=== PATIENT | female | born 1960 | race Caucasian/White ===

== ENCOUNTER → 2018-07-05 09:13 | Outpatient (CLI) | payer OTHER, SELFPAY ==
--- NOTE | 2018-07-05 09:15 | DI.RAD.S_ITS ---
PROCEDURE: XR HAND RT MIN 3V INDICATIONS: Right wrist/hand pain after a fall 2 days ago. TECHNIQUE: 3 views of the hand(s) acquired. COMPARISON: None. FINDINGS: Bones: No fractures or dislocations. Carpal bones are normally aligned. No suspicious bony lesions. Mild osteoarthritic changes are noted in multiple interphalangeal joints. Soft tissues: No suspicious soft tissue calcifications. IMPRESSION: No fracture or dislocation. Dictated by: Leonor Hickey M.D. on 07/05/2018 at 9:29 Approved by: Leonor Hickey M.D. on 07/05/2018 at 9:34
== END ==
PROVIDERS: Family Provider Family Medicine; PCP Nurse Practitioner Family; Visit Provider Physician Assistant
DX: M25.531 Pain in right wrist (principal); M79.641 Pain in right hand
CPT/HCPCS: 73130

== ENCOUNTER → 2018-07-05 16:52 | Outpatient (CLI) | payer OTHER, SELFPAY ==
--- NOTE | 2018-07-05 | DI.RAD.S_ITS ---
PROCEDURE: XR WRIST RT MIN 3V INDICATIONS: PAIN IN RIGHT WRIST TECHNIQUE: 4 views of the wrist were acquired. COMPARISON: None. FINDINGS: Bones: No acute fractures or dislocations. A prominent corticated ossification noted over the dorsal aspect of the right wrist possibly representing sequela of remote triquetral fracture/injury. Mild degenerative changes of the radiocarpal joint. No suspicious bony lesions. Scaphoid view: The scapholunate interval is maintained. Soft tissues: No suspicious soft tissue calcifications. IMPRESSION: 1. Right wrist without acute radiographic abnormalities. 2. Prominent corticated ossification over the dorsal aspect of the right wrist which may represent sequela of remote triquetral fracture/injury. 3. Mild degenerative changes of the radiocarpal joint. Dictated by: Osvaldo Samuel M.D. on 07/06/2018 at 12:41 Approved by: Osvaldo Samuel M.D. on 07/06/2018 at 12:45
== END ==
PROVIDERS: PCP Internal Medicine; Visit Provider Physician Assistant
DX: M25.531 Pain in right wrist (principal); M19.031 Primary osteoarthritis, right wrist
CPT/HCPCS: 73110; 73130

== ENCOUNTER → 2018-08-07 09:21 | Outpatient (CLI) | payer OTHER, SELFPAY ==
--- NOTE | 2018-08-07 | DI.MG.S_ITS ---
BILATERAL DIGITAL SCREENING MAMMOGRAM 3D/2D WITH CAD: 08/07/2018 CLINICAL: Routine screening. Family history of breast cancer. Comparison is made to exams dated: 06/23/2016 mammogram, 02/10/2014 mammogram, and 06/20/2011 mammogram - [facility]. The tissue of both breasts is heterogeneously dense. This may lower the sensitivity of mammography. Current study was also evaluated with a Computer Aided Detection (CAD) system. There are benign calcifications in both breasts. No significant masses, calcifications, or other findings are seen in either breast. There has been no significant interval change. IMPRESSION: There is no mammographic evidence of malignancy. A 1 year screening mammogram is recommended. This exam was interpreted at Station ID: [id number]. NOTE: For mammograms, a report in lay terms will be sent to the patient. Approximately 15% of breast malignancies will not be visualized mammographically. In the management of a palpable breast mass, a negative mammogram must not discourage biopsy of a clinically suspicious lesion. Electronically Signed By: Osvaldo york/tone:08/09/2018 12:35:22 letter sent: Normal Exam ACR BI-RADS Category 2: Benign Finding(s) 3342F
== END ==
PROVIDERS: PCP Internal Medicine; Visit Provider Internal Medicine
DX: Z12.31 Encounter for screening mammogram for malignant neoplasm of breast (principal); Z80.3 Family history of malignant neoplasm of breast
CPT/HCPCS: 77063; 77067

== ENCOUNTER → 2019-06-26 20:23 | Outpatient (CLI) | payer OTHER, SELFPAY ==
--- NOTE | 2019-06-26 20:25 | DI.RAD.S_ITS ---
PROCEDURE: XR FOOT RT 2V INDICATIONS: RIGHT GREAT TOE PAIN TECHNIQUE: 2 views of the foot were acquired. COMPARISON: None. FINDINGS: Bones: No fractures or dislocations. There is mild degeneration at the 1st metatarsophalangeal joint with joint space narrowing and osteophytosis laterally. Mild degeneration is also noted at the interphalangeal joints in the 2nd to 5th toes. No suspicious bony lesions. Soft tissues: There is mild periarticular soft tissue swelling medial to 1st metatarsophalangeal joint. No tibiotalar joint effusion. Achilles tendon appears intact. IMPRESSION: 1. Mild osteoarthritic changes including at the 1st metatarsophalangeal joint. Dictated by: Rodolfo Diez M.D. on 06/26/2019 at 20:43 Approved by: Rodolfo Diez M.D. on 06/26/2019 at 20:45
== END ==
PROVIDERS: PCP Internal Medicine; Referring Provider Internal Medicine; Visit Provider Internal Medicine
DX: M79.674 Pain in right toe(s) (principal); M79.89 Other specified soft tissue disorders
CPT/HCPCS: 73620

== ENCOUNTER → 2020-02-17 14:27 | Outpatient (CLI) | payer OTHER, SELFPAY ==
--- NOTE | 2020-02-17 14:29 | DI.RAD.S_ITS ---
PROCEDURE: XR WRIST LT MIN 3V INDICATIONS: L wrist pain and bruising after FOOSH TECHNIQUE: 4 views of the wrist were acquired. COMPARISON: [facility], CR, XR HAND RT MIN 3V, 07/05/2018, 9:16. [facility], CR, XR WRIST RT MIN 3V, 07/05/2018, 16:58. FINDINGS: Bones: No definite common displaced fractures or dislocations. There is focal irregularity seen involving the radial styloid. No suspicious bony lesions. Degenerative changes are seen throughout, which are most prominent involving the 1st carpometacarpal joint. Milder degenerative changes are seen elsewhere. Scaphoid view: No navicular fractures are seen. Soft tissues: No suspicious soft tissue calcifications. IMPRESSION: No definite, displaced fractures are seen. Focal bony irregularity seen involving the radial styloid, which may represent a fracture, yet is felt more likely to be related to remote irregularity. Please correlate with focal tenderness. If there is snuffbox tenderness (or other clinical suspicion for a fracture not seen on these images) then a repeat examination would be recommended in 10 to 14 days, following splinting. Dictated by: Sarkis Fernandez M.D. on 02/17/2020 at 14:05 Approved by: Sarkis Fernandez M.D. on 02/17/2020 at 14:08
== END ==
PROVIDERS: PCP Internal Medicine; Referring Provider Nurse Practitioner; Visit Provider Nurse Practitioner
DX: S60.212A Contusion of left wrist, initial encounter (principal); M25.532 Pain in left wrist; W19.XXXA Unspecified fall, initial encounter
CPT/HCPCS: 73110

== ENCOUNTER → 2020-03-02 14:59 | Outpatient (CLI) | payer OTHER, SELFPAY ==
[2020-03-04 13:06] LABS: COVID19 Sendout Not Detected
== END ==
PROVIDERS: PCP Internal Medicine; Visit Provider Physician Assistant
DX: Z11.59 Encounter for screening for other viral diseases (principal)
CPT/HCPCS: 87635

== ENCOUNTER 2020-03-05 11:57 | Day surgery (SDC) | payer OTHER, SELFPAY ==
--- NOTE | 2020-03-05 | PATH_ITS ---
[facility] Accession Number: [id number] . 01 Material submitted: . sigmoid colon - SIGMOID POLYP 2CM X2 . 01 Clinical history: . A: SIGMOID POLYP 2CM X2 . 02 Diagnosis: Sigmoid Colon Polyps, 2 cm, Biopsies: Small serrated lesion, cannot exclude early sessile serrated adenoma. Please see comment. MRV 03/07/2020 1019 Local . 02 Comment: Only one tissue fragment is received for histologic evaluation. . 02 Electronically signed: . Bob Givens MD, PhD, Pathologist NPI- [id number] . 01 Gross description: . SIGMOID POLYP 2CM X2: Received in formalin is 1 fragment(s) of deshpande, soft tissue measuring 0.5 x 0.3 x 0.1 cm submitted entirely in 1 cassette(s) /QBJ 03/06/2020 0726 Local . 02 Pathologist provided ICD-10: D12.5 . 02 CPT . 041579 Performed at: 01 [facility] [address], [place], [place] [id number] MD Rodolfo Olivarez MD Phone: [phone] Performed at: 02 [facility] [address] [place], [place] [id number] MD Rubina Macias MD Phone: [phone]
--- NOTE | 2020-03-05 12:07 | P.HP_ITS ---
History of Present Illness History of Present Illness Date Patient Seen: 03/05/20 Chief complaint: [facility] Narrative: 59 Years Old Female seen today for consideration of a screening colonoscopy. This is her second lifetime colonoscopy, previous colonoscopy in 2015 revealed polyps, records not available at time dictation. There have been no lower GI symptoms suggesting disease such as change in bowel habits, bleeding, abdominal pain or anemia. She does have a family history of colon cancer in her mother. Overall health issues have been stable, including no major cardiac events for at least 6 weeks. Current Medications: 1) Docusate Sodium 100 Mg Oral Capsule (Docusate Sodium) .... Take two capsules once daily. 2) Cvs D3 5000 Unit Oral Capsule (Cholecalciferol) .... Take one capsule once daily. 3) Flax Seed Oil 1300 Mg Oral Capsule (Flaxseed (Linseed)) .... Take one capsule once daily 4) Multi-Vitamin/minerals Oral Tablet (Multiple Vitamins-Minerals) .... take one daily 5) Acidophilus Probiotic Complex Oral Tablet (Probiotic Product) .... Take one tablet once daily. 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 Matt Mora Past Surgical History: Tonsillectomy Endolymphatic Sac Decompression (1990) : 1998, 2001 Colonoscopy, 2014 Family History: Reviewed history from 08/09/2018 and no changes required: Father: Casey (1920) Glaucoma, Meniere's Desease, Prostate Cancer Mother: Magdalena (1924) age 63 - Lung CA Siblings: 7 - 1 of SIDS age 6mon. 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, Kadie (2001) - asthma 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[employer] 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: 4 Education: BA, DDS, MSD Alcohol drinks/day: 1/day >5/day in last 3 mos: no Caffeine use/day: 1-2 Type of Exercise: daily movement - constant Exercise Times per Week: 7 Guns in home: no Dental Care w/in 6 mos.: no Sun Exposure: rarely Fall Risk: no falls in past year Seat Belt Use: yes Smoking Status: never smoker Tobacco Type: none Drug Use: never HIV High Risk Behavior: no Patient History Surgical History Status post delivery Status post delivery Status post dilation and curettage Status post tonsillectomy and adenoidectomy Family & Social History Family History Brother Age: 54 Diabetes mellitus Father Age: 99 Glaucoma Cancer Sister Age: 68 Diabetes mellitus Tobacco & Substance use: Smoking Status Never smoker Meds Home Medications and Allergies Home Medications Medication Instructions Recorded Confirmed Type No Known Home Medications 02/17/20 02/17/20 History Allergies Allergy/AdvReac Type Severity Reaction Status Date / Time No Known Allergies Allergy Verified 03/05/20 12:33 Review of Systems Review of Systems ROS: Yes All systems reviewed with the patient and are negative except as otherwise documented Exam Narrative Exam Narrative: GENERAL: Alert and oriented, appearing stated age and in no acute distress. HEENT: Head normocephalic/atraumatic. Pupils equal, round, and reactive to light and accomodation. Extraocular muscles intact. Tympanic membranes clear. Nasal mucosa moist, septum midline. Oral mucosa moist, no lesions. Neck soft and supple, no lymphadenopathy. LUNGS: Clear to ausculation bilaterally, no wheezes, rhonchi or rales. CV: Normal S1 and S2 with regular rate and rhythm, no audible murmurs, rubs or gallops. ABDOMEN: Soft, non-tender, non-distended, no organomegaly. Positive bowel sounds. EXTREMITIES: No clubbing, cyanosis, or edema. NEURO: Cranial nerves II through XII grossly intact, no focal deficits. PSYCH: Alert and oriented x 3. SKIN: No concerning lesions. Assessment & Plan Assessment & Plan narrative: 1. History of colon polyps 2. Family history of colon cancer 3. Screening for colon cancer Plan for colonoscopy. The nature and character of the procedure as well as anticipated results were discussed. The possibility of not completing the procedure was also discussed. Possible complications including aspiration pneumonia, bleeding, perforation and reaction to medications either for sedation or preparation and missed lesions were discussed. Questions were answered and proceeding to the colonoscopy was elected. Informed consent signed. I sincerely appreciate the referral allowing me to participate in this patient's care. Please contact me with any questions or concerns.
--- NOTE | 2020-03-05 12:11 | PM.OP.ENDO ---
Operative Date/Time/Diagnoses Date of procedure: 03/05/20 Procedure & Clinicians Study performed: Flexible sigmoidoscopy Same procedure as scheduled: No (Incomplete colonoscopy) Procedure Notes SCOAP/Timeout: 1:05 p.m. Procedure in detail: ENDOSCOPIST: Anne Evans MD Sedation RN: Ashley Leigh RN Sedation start time: 13:06 Sedation end time: 13:48 PROCEDURE: Flexible sigmoidoscopy INDICATIONS: 1. History of colon polyps 2. Family history of colon cancer 3. Screening for colon cancer. MEDICATION: Levsin 0.125 mg sublingual, incremental doses of Versed and fentanyl until appropriate level sedation achieved. ASA CLASS: 2 COMPLICATIONS: None. EXTENT OF PROCEDURE: Cecum. QUALITY OF PREP: Good with portions of liquid stool. PROCEDURE: Prior to insertion of the colonoscope, a digital rectal examination was accomplished with circumferential palpation of the distal rectal mucosa without significant findings being noted. The high-definition pediatric colonoscope was passed into the rectum in the usual fashion and advanced over to the ascending colon with difficulty secondary to tortuosity. Multiple position changes were attempted from left lateral decubitus to supine to right lateral decubitus and back again several times with no improvement in ability to intubate any further than the mid ascending colon. Gentle holds were also used without achieving any forward movement. Cecum was visualized but not intubated. ASCENDING COLON: As the colonoscope was withdrawn, care was taken to expose and inspect the haustral folds no abnormalities were seen from the mid ascending colon distally. HEPATIC FLEXURE: Normal, no polyps, diverticula or other abnormalities. TRANSVERSE COLON: Normal, no polyps, diverticula or other abnormalities. DESCENDING COLON: Normal, no polyps, diverticula or other abnormalities. SIGMOID COLON: 2 small polyps were noted and removed with cold biopsy forceps, excellent hemostasis. Otherwise, 1 diverticula and no other abnormalities were seen. RECTUM: Normal. J maneuver was produced. There was no significant perianal disease. The J maneuver was broken. The remainder of the rectum was inspected and there was no external hemorrhoid disease. The scope was withdrawn. IMPRESSION: 1. Incomplete colonoscopy, intubated to mid ascending colon 2. Sigmoid polyp x2, 2 mm, removed with cold biopsy forceps 3. Sigmoid diverticula x1 PLAN: 1. Follow-up in clinic status post pathology results. The possibility of a missed lesion including a malignancy has been discussed with the patient previously. Potential alarm symptoms have been discussed and should be reported immediately.
[2020-03-05 12:18] VITALS: BP 100/52; PULSE 69; RESP 12; TEMP 36.8; O2SAT 100; BMI 23.6
[2020-03-05] MEDS: LACTATED RINGERS 1,000 ML 200 ML IV (12:34)
[2020-03-05] MEDS: HYOSCYAMINE 0.125 MG TABLET PO (12:36)
[2020-03-05] MEDS: fentaNYL 250 MCG/5 ML INJ IV ×5 (13:05→13:35)
[2020-03-05] MEDS: MIDAZOLAM 5 MG/5 ML VIAL IV ×3 (13:05→13:30)
[2020-03-05 13:53] VITALS: BP 102/52; PULSE 62; RESP 12; TEMP 36.2; O2SAT 97
[2020-03-05 13:58] VITALS: BP 98/59; PULSE 64; RESP 11; TEMP 36.2; O2SAT 96
[2020-03-05 14:03] VITALS: BP 107/60; PULSE 70; RESP 24; TEMP 36.1; O2SAT 97
[2020-03-05 14:13] VITALS: BP 107/62; PULSE 70; RESP 19; TEMP 36.2; O2SAT 96
[2020-03-05 14:35] VITALS: BP 99/60; PULSE 61; RESP 16; TEMP 36.5; O2SAT 97
--- NOTE | 2020-03-05 14:41 | SUR.PHASEII ---
1435 - patient stated she had some slight nausea. Given crackers and had patient lay back down. Vitals stable. Offered to get an order for nausea medicine, but patient refused. Stated nausea was better after crackers.
== END 2020-03-05 14:38 | disposition home or self-care (01) ==
PROVIDERS: PCP Internal Medicine; Referring Provider Family Medicine; Visit Provider Student in an Organized Health Care Education/Training Program
PROC: 0DJD8ZZ Inspection of Lower Intestinal Tract, Via Natural or Artificial Opening Endoscopic (ICD-10-PCS; CPT 45378; principal; 2020-03-05 13:00)
DX: Z12.11 Encounter for screening for malignant neoplasm of colon (principal); Z80.0 Family history of malignant neoplasm of digestive organs; Z86.010 Personal history of colon polyps; D12.5 Benign neoplasm of sigmoid colon
CPT/HCPCS: 45380; J2250; J3010

== ENCOUNTER → 2020-03-07 10:42 | Outpatient (CLI) | payer OTHER, SELFPAY ==
--- NOTE | 2020-03-07 | DI.MG.S_ITS ---
BILATERAL DIGITAL SCREENING MAMMOGRAM 3D/2D WITH CAD: 03/07/2020 CLINICAL: Routine screening. Family history of breast cancer. Comparison is made to exams dated: 08/07/2018 mammogram, 06/23/2016 mammogram, and 02/10/2014 mammogram - [facility]. The tissue of both breasts is heterogeneously dense. This may lower the sensitivity of mammography. Current study was also evaluated with a Computer Aided Detection (CAD) system. There are benign calcifications in both breasts. No significant masses, calcifications, or other findings are seen in either breast. There has been no significant interval change. IMPRESSION: BENIGN There is no mammographic evidence of malignancy. A 1 year screening mammogram is recommended. This exam was interpreted at Station ID: [id number]. NOTE: For mammograms, a report in lay terms will be sent to the patient. Approximately 15% of breast malignancies will not be visualized mammographically. In the management of a palpable breast mass, a negative mammogram must not discourage biopsy of a clinically suspicious lesion. Electronically Signed By: Ashvin smith/tone:03/07/2020 12:33:45 letter sent: Normal Exam ACR BI-RADS Category 2: Benign Finding(s) 3342F
== END ==
PROVIDERS: PCP Internal Medicine; Referring Provider Internal Medicine; Visit Provider Internal Medicine
DX: Z12.31 Encounter for screening mammogram for malignant neoplasm of breast (principal); Z80.3 Family history of malignant neoplasm of breast
CPT/HCPCS: 77063; 77067

== ENCOUNTER → 2020-03-08 06:57 | Outpatient (CLI) | payer OTHER, SELFPAY ==
--- NOTE | 2020-03-08 | DI.MRI.S_ITS ---
PROCEDURE: MR WRIST LT WO/W CON INDICATIONS: Displaced fracture of triquetrum [cuneiform] bone, LEFT WRIS TECHNIQUE: Noncontrast coronal proton density fast spin echo and T2 fast spin echo with fat saturation; coronal 3-D gradient echo, axial T1 spin echo and T2 fast spin echo with fat saturation, axial T1 spin echo with fat saturation, sagittal T1 spin echo through the wrist. Post-contrast axial, coronal, and sagittal T1 spin echo with fat saturation through the wrist. COMPARISON: [facility], CR, XR WRIST LT MIN 3V, 02/17/2020, 14:24. [facility], CR, XR WRIST 3+ VIEWS LEFT, 02/29/2020, 13:25. FINDINGS: Image quality: Excellent. Bones and cartilage: Transverse oblique fracture of the distal radial metaphysis. Associated marrow and adjacent soft tissue edema is present. Fluid adjacent to the scaphoid. There is slight incongruity of the distal radial articular surface with approximately 1 mm of cortical step-off. There is associated reactive adjacent enhancement. Carpal ligaments: The scapholunate and lunotriquetral ligaments appear intact. In the absence of intra-articular contrast, the extrinsic carpal ligaments are not well identified. On sagittal images, the pisohamate ligament appears intact. Triangular fibrocartilage complex: The triangular fibrocartilage appears intact. The adjacent meniscal homolog appears normal in the absence of intra-articular contrast. The extensor carpi ulnaris tendon is normal in location and morphology. Tendons and soft tissues: No suspicious soft tissue enhancement. The carpal tunnel structures appear normal, including the median nerve. The ulnar nerve appears normal within Guyon's canal. There is extensor carpi radialis brevis tenosynovitis. No suspicious enhancement. IMPRESSION: Transverse oblique fracture of the distal radial metaphysis as detailed above Extensor carpi radialis brevis tenosynovitis Dictated by: Christian Narayanan M.D. on 03/08/2020 at 16:23 Approved by: Christian Narayanan M.D. on 03/08/2020 at 16:30
== END ==
PROVIDERS: PCP Internal Medicine; Referring Provider Internal Medicine; Visit Provider Orthopaedic Surgery
DX: S52.592A Other fractures of lower end of left radius, initial encounter for closed fracture (principal); M65.4 Radial styloid tenosynovitis [de Quervain]
CPT/HCPCS: 73223

== ENCOUNTER → 2021-04-25 08:42 | Outpatient (CLI) | payer OTHER, SELFPAY ==
--- NOTE | 2021-04-25 | DI.MG.S_ITS ---
BILATERAL DIGITAL SCREENING MAMMOGRAM 3D/2D WITH CAD: 04/25/2021 CLINICAL: Routine screening. Family history of breast cancer. Comparison is made to exams dated: 03/07/2020 mammogram, 08/07/2018 mammogram, and 06/23/2016 mammogram - [facility]. The tissue of both breasts is heterogeneously dense. This may lower the sensitivity of mammography. Current study was also evaluated with a Computer Aided Detection (CAD) system. There are benign calcifications in both breasts. No significant masses, calcifications, or other findings are seen in either breast. There has been no significant interval change. IMPRESSION: BENIGN There is no mammographic evidence of malignancy. A 1 year screening mammogram is recommended. This exam was interpreted at Station ID: [id number]. NOTE: For mammograms, a report in lay terms will be sent to the patient. Approximately 15% of breast malignancies will not be visualized mammographically. In the management of a palpable breast mass, a negative mammogram must not discourage biopsy of a clinically suspicious lesion. Electronically Signed By: Rodolfo jay/tone:04/25/2021 09:49:00 letter sent: Normal Exam ACR BI-RADS Category 2: Benign Finding(s) 3342F
== END ==
PROVIDERS: PCP Internal Medicine; Referring Provider Internal Medicine; Visit Provider Internal Medicine
DX: Z12.31 Encounter for screening mammogram for malignant neoplasm of breast (principal); Z80.3 Family history of malignant neoplasm of breast
CPT/HCPCS: 77063; 77067

== ENCOUNTER → 2022-07-25 14:41 | Outpatient (CLI) | payer OTHER, SELFPAY ==
--- NOTE | 2022-07-25 | DI.MG.S_ITS ---
BILATERAL DIGITAL SCREENING MAMMOGRAM 3D/2D WITH CAD: 07/25/2022 CLINICAL: Routine screening. Family history of breast cancer. Comparison is made to exams dated: 04/25/2021 mammogram, 03/07/2020 mammogram, 08/07/2018 mammogram, and 06/23/2016 mammogram - [facility]. Both breasts are heterogeneously dense, which may obscure small masses (category c / 51-75% glandular tissue). Current study was also evaluated with a Computer Aided Detection (CAD) system. There are benign calcifications in both breasts. No significant masses, calcifications, or other findings are seen in either breast. There has been no significant interval change. IMPRESSION: BENIGN There is no mammographic evidence of malignancy. A 1 year screening mammogram is recommended. Based on the Tyrer Cuzick model (a risk assessment model) the patient's lifetime risk is 12.8% and her 10 year risk is 5.8%. According to the ACR, ACS, and NCCN guidelines, an annual breast MRI exam along with mammogram is recommended if the patient's lifetime risk is 20% or greater. This exam was interpreted at Station ID: [id number]. NOTE: For mammograms, a report in lay terms will be sent to the patient. Approximately 15% of breast malignancies will not be visualized mammographically. In the management of a palpable breast mass, a negative mammogram must not discourage biopsy of a clinically suspicious lesion. Electronically Signed By: Donnell logan/tone:07/25/2022 16:16:22 letter sent: Normal Exam ACR BI-RADS Category 2: Benign Finding(s) 3342F
== END ==
PROVIDERS: PCP Internal Medicine; Referring Provider Internal Medicine; Visit Provider Internal Medicine
DX: Z12.31 Encounter for screening mammogram for malignant neoplasm of breast (principal); Z80.3 Family history of malignant neoplasm of breast; Z13.820 Encounter for screening for osteoporosis; M85.851 Other specified disorders of bone density and structure, right thigh; Z78.0 Asymptomatic menopausal state
CPT/HCPCS: 77063; 77067; 77080

== ENCOUNTER → 2023-08-01 08:09 | Outpatient (CLI) | payer OTHER, SELFPAY ==
--- NOTE | 2023-08-01 | DI.MG.S_ITS ---
BILATERAL DIGITAL SCREENING MAMMOGRAM 3D/2D WITH CAD: 08/01/2023 CLINICAL: Routine screening. Family history of breast cancer. Comparison is made to exams dated: 07/25/2022 mammogram, 04/25/2021 mammogram, and 03/07/2020 mammogram - [facility]. Both breasts are heterogeneously dense, which may obscure small masses (category c / 51-75% glandular tissue). Current study was also evaluated with a Computer Aided Detection (CAD) system. There are benign calcifications in both breasts. No significant masses, calcifications, or other findings are seen in either breast. There has been no significant interval change. IMPRESSION: BENIGN There is no mammographic evidence of malignancy. A 1 year screening mammogram is recommended. Based on the Tyrer Cuzick model (a risk assessment model) the patient's lifetime risk is 12.4% and her 10 year risk is 5.8%. According to the ACR, ACS, and NCCN guidelines, an annual breast MRI exam along with mammogram is recommended if the patient's lifetime risk is 20% or greater. This exam was interpreted at Station ID: [id number]. NOTE: For mammograms, a report in lay terms will be sent to the patient. Approximately 15% of breast malignancies will not be visualized mammographically. In the management of a palpable breast mass, a negative mammogram must not discourage biopsy of a clinically suspicious lesion. Electronically Signed By: Nikole chirinos/tone:08/03/2023 12:34:30 letter sent: Normal Exam ACR BI-RADS Category 2: Benign Finding(s) 3342F
[2023-08-01 09:58] LABS: Appearance Urine UA CLEAR; Bilirubin Urine UA NEGATIVE (NEGATIVE); Color Urine UA YELLOW; Glucose Urine UA NEGATIVE (Negative); Ketones Urine UA NEGATIVE (NEGATIVE); Leukocyte Esterase Urine UA NEGATIVE (NEGATIVE); Nitrite Urine UA NEGATIVE (Negative); Occult Blood Urine UA NEGATIVE (Negative); Protein Urine UA NEGATIVE (Negative); Specific Gravity Urine UA 1.015 (1.000-1.035); Urobilinogen Urine UA 0.2 E.U./dL (0.2)
[2023-08-01 10:25] LABS: Bacteria Urine None Seen; Culture Indicated Urine Cult Not Indicated; RBC Urine None Seen (0-5/HPF); Squamous Epithelial Cell Urine None Seen (0-5/HPF); Urine Volume 10mL (spun); WBC Urine None Seen (0-5/HPF)
[2023-08-01 10:55] LABS: Alanine Aminotransferase 18 IU/L (<35); Albumin 3.7 g/dL (3.5-5.0); Albumin Globulin Ratio 1.4 (1.0-2.8); Alkaline Phosphatase 67 U/L (38-126); Aspartate Aminotransferase 26 IU/L (14-36); BUN Creatinine Ratio 23.6 (6-22); Bilirubin Total 0.7 mg/dL (0.2-1.3); Blood Urea Nitrogen 17 mg/dL (7-17); Carbon Dioxide 30 mmol/L (22-32); Chloride 107 mmol/L (98-107); Cholesterol 187 mg/dL (140-199); Estimated Glomerular Filt Rate > 60 mL/min (>60); Globulin 2.7 g/dL (1.7-4.1); Glucose 96 mg/dL (80-110); HDL Cholesterol 72 mg/dL (40-60); HEMOLYSIS < 15 (0-50); LDL Cholesterol Calculated 104 mg/dL (<100); Potassium 4.2 mmol/L (3.4-5.1); Sodium 138 mmol/L (137-145); Total Protein 6.4 g/dL (6.3-8.2); Triglycerides 53 mg/dL (35-150)
[2023-08-01 11:24] LABS: TSH w/ Reflex to FT4 1.54 uIU/mL (0.47-4.68)
[2023-08-01 11:42] LABS: Vitamin B12 739 pg/mL (239-931)
[2023-08-01 11:49] LABS: Hemoglobin A1C% w Est Avg Glu 5.3 % (4.0-6.0)
[2023-08-02 07:22] LABS: Hepatitis B Surf AB Quant >1000.0 mIU/mL (Immunity>9.9)
== END ==
PROVIDERS: PCP Internal Medicine; Referring Provider Internal Medicine; Visit Provider Internal Medicine
DX: Z80.3 Family history of malignant neoplasm of breast (principal); R92.333 Mammographic heterogeneous density, bilateral breasts; Z00.00 Encounter for general adult medical examination without abnormal findings; R74.8 Abnormal levels of other serum enzymes; R30.0 Dysuria; Z13.1 Encounter for screening for diabetes mellitus; Z12.31 Encounter for screening mammogram for malignant neoplasm of breast; Z13.220 Encounter for screening for lipoid disorders; Z13.21 Encounter for screening for nutritional disorder
CPT/HCPCS: 36415; 77063; 77067; 80053; 80061; 81001; 82306; 82607; 83036; 84443; 86706

== ENCOUNTER → 2024-06-27 11:01 | Outpatient (CLI) | payer MEDICARE, OTHER, SELFPAY ==
--- NOTE | 2024-06-27 11:06 | DI.RAD.S_ITS ---
PROCEDURE: XR DEXA AXIAL SKELETON INDICATIONS: osteoporosis screening COMPARISON: [facility], CR, XR DEXA AXIAL SKELETON, 07/25/2022, 15:07. FINDINGS: Lumbar Spine: Bone mineral density 0.937 g/cm2, T score -1.0. There is interval 0.9% increase in total lumbar spine bone mineral density. Left Femoral Neck: Bone mineral density 0.716 g/cm2, T score -1.2. There is interval 0.8% increase in left femoral neck bone mineral density. Left Hip: Bone mineral density 0.829 g/cm2, T score -0.9. There is interval 0.3% increase in left total hip bone mineral density. Fracture Risk Calculation (when applicable): 10-year fracture risk of a major osteoporotic fracture 7.9 percent and of a hip fracture 0.7 percent. (T score greater or equal to -1.0 to: NORMAL) (T score from -1.1 to -2.4: OSTEOPENIA) (T score less than or equal to -2.5: OSTEOPOROSIS) IMPRESSION: Osteopenia with increased 10 year fracture risk as above. Follow-up guidelines as follows: Osteoporosis: Consider a repeat DEXA and Vertebral Fracture Assessment (VFA) exam in 2 years or sooner if medically necessary, to reassess this patient's status. Osteopenia: Consider a repeat DEXA in 2-3 years to reassess this patient's status, or if there is a new clinical indication. Normal: Consider a repeat DEXA in 5 years or sooner, or if there is a new clinical indication. All treatment decisions require clinical judgment and consideration of individual patient factors, including patient preferences, comorbidities, previous drug use, risk factors not captured in the FRAX model (e.g., frailty, falls, vitamin D deficiency, increased bone turnover, interval significant decline in bone density ) and possible under- or over-estimation of fracture risk by FRAX. In addition, the NOF Guide recommends that FDA-approved medical therapies be considered in postmenopausal women and men age >= 50 years with a: * Hip or vertebral (clinical or morphometric) fracture * T-score of <=-2.5 at the spine or hip * Ten-year fracture probability by FRAX of >= 3% for hip fracture or >=20% for major osteoporotic fracture. Dictated by: Zeus Julian M.D. on 06/27/2024 at 15:17 Approved by: Zeus Julian M.D. on 06/27/2024 at 15:18
== END ==
PROVIDERS: PCP Registered Nurse; Referring Provider Registered Nurse; Visit Provider Registered Nurse
DX: Z13.820 Encounter for screening for osteoporosis (principal); M85.852 Other specified disorders of bone density and structure, left thigh; Z78.0 Asymptomatic menopausal state
CPT/HCPCS: 77080

== ENCOUNTER → 2024-08-17 17:45 | Outpatient (CLI) | payer MEDICARE, OTHER, SELFPAY ==
--- NOTE | 2024-08-17 17:48 | DI.MG.S_ITS ---
MM screening mammo BI: 08/17/2024. BI-RADS: 1 CLINICAL: 64-year old female for bilateral screening mammogram. Tyrer-Cuzick lifetime risk of 7.9%. No personal or first-degree family history of breast cancer. PRIOR EXAMS 08/01/2023, 07/25/2022, 04/25/2021, 03/07/2020, 08/07/2018, 06/23/2016. MAMMOGRAPHY TECHNIQUE: 2D and 3D (tomosynthesis) digital mammographic views obtained, with additional images as needed for full coverage. Current study was also evaluated with a Computer Aided Detection (CAD) system. DENSITY C. The breasts are heterogeneously dense, which may obscure small masses. MAMMOGRAPHY FINDINGS Bilateral: No suspicious mass, asymmetry, microcalcification, or other abnormality seen. No significant change from comparison. IMPRESSION: * No evidence of malignancy. RECOMMENDATIONS Bilateral * Annual screening mammography. OVERALL ASSESSMENT CATEGORY BI-RADS-1: Negative. [employer] recommends annual screening mammography beginning at age 40 for women with average risk of breast cancer. ELECTRONICALLY SIGNED: Destinee William M.D. on 08/19/2024 at 09:38:31 AM PT Interpreting Station ID: [id number]
== END ==
LOC: MAMMO 17:48
PROVIDERS: PCP Registered Nurse; Referring Provider Registered Nurse; Visit Provider Registered Nurse
DX: Z12.31 Encounter for screening mammogram for malignant neoplasm of breast (principal); R92.333 Mammographic heterogeneous density, bilateral breasts
CPT/HCPCS: 77063; 77067